=== PATIENT | female | born 1995 | race Asian ===

== ENCOUNTER 2021-10-14 21:35 | Emergency (ER) | payer OTHER, BC ==
[~2021-10-14] VITALS: Ht 165.1 cm; Wt 61.2 kg
[2021-10-14 21:39] VITALS: BP_SYST 128
--- NOTE | 2021-10-14 21:39 | NUR ---
Patient to ER bed 03 to gown for evaluation. Side rails up.
[2021-10-14] MEDS: LIDOCAINE PATCH 5% 1 EA TP ONE (22:52)
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
--- NOTE | 2021-10-14 23:34 | NUR ---
pt going to ct by tyron with tech
[2021-10-15] MEDS ORDERED: IBUP-1969 PO (00:46)
[2021-10-15] MEDS ORDERED: LIDO700A30 TP (00:46)
--- NOTE | 2021-10-15 01:15 | NUR ---
Patient given written and verbal discharge instructions and verbalizes understanding. ER MD Marquez discussed with patient the results and treatment provided. Patient in stable condition. ID arm band removed. Rx of Ibuprofen and Lidocaine sent to pharmacy of choice. Patient educated on pain management and to follow up with PMD. Pain Scale 1/10. Opportunity for questions provided and answered. Medication side effect fact sheet provided.
[2021-10-15 01:20] VITALS: BP_SYST 130
== END 2021-10-15 01:15 | disposition home or self-care (01) ==
LOC: SED 21:35
DX: S93.401A Sprain of unspecified ligament of right ankle, initial encounter (principal); S16.1XXA Strain of muscle, fascia and tendon at neck level, initial encounter; V49.49XA Driver injured in collision with other motor vehicles in traffic accident, initial encounter; Y93.89 Activity, other specified; Y92.89 Other specified places as the place of occurrence of the external cause; Y99.8 Other external cause status
CPT/HCPCS: 70450-TC; 72125-TC; 76376; 81025; 99284